=== PATIENT | male | born 1955 | race Caucasian/White ===

== ENCOUNTER 2021-06-01 02:03 | Day surgery (SDC) | payer OTHER, SELFPAY ==
[2021-05-24 10:38] VITALS: BMI 24.5
--- NOTE | 2021-05-31 13:08 | WPDANESEPPF ---
Anes - Initial Pre Proc Eval Procedure: Operation Date: 06/01/21 09:00 Proposed Procedures p Screening Colonoscopy - Claudio Kirby MD Date/Time: 05/31/21 13:08 Surgeon: Claudio Kirby MD Pre Op Diagnosis: neoplasm screening Patient Data Age: 65 Gender: M Height: 1.73 m Weight: 73 kg Allergies Allergy/AdvReac Type Severity Reaction Status Date / Time Penicillins Allergy Unknown UNKNOWN Verified 06/01/21 08:34 Home Medications Medication Instructions Recorded Confirmed Type ylfpgaqz-ene-IZ-lycopen-lutein 1 tablet PO DAILY 05/24/21 05/24/21 History [Centrum Silver Men] Patient hx anesthesia problems: none Family hx anesthesia problems: none [facility] Social History Social History Smoking status: Never smoker Alcohol intake: current Drinks per week: 21 Living arrangements: with family Spiritual care concerns: No Anes - Eval Final PreProcedure Day of Procedure 05/31/21 13:08 Patient weight: normal Heart: regular rate and rhythm Lungs: clear to auscultation and normal air movement Airway: Mallampati scale class II Neurological: alert and oriented Last oral intake: >/= 8 hours ASA classification: II Emergent: no Anesthetic plan: proceed Anesthesia type and monitoring: general GIVS and standard monitoring Informed Consent: The patient's anesthetic plan and its attendant risks and benefits were discussed with the patient/family/POA. Questions were solicited and answers provided to the satisfaction of the patient/family/POA.
[2021-06-01 08:35] VITALS: BP 133/80; PULSE 65; RESP 18; TEMP 36; O2SAT 100
[2021-06-01] MEDS: LACTATED RINGERS 1,000 ML 150 ML IV CONT (08:41)
--- NOTE | 2021-06-01 08:48 | WPDGICN ---
Assessment and Plan Assessment and plan (1) Family hx of colon cancer: Code(s): Z80.0 - Family history of malignant neoplasm of digestive organs Status: Acute Assessment and Plan: Patient's brother was diagnosed with colon cancer. For this reason screwing colonoscopy is advised now and at 5 year intervals. GI Consult Note Consult date/time: 06/01/21 08:48 HPI: José Faulkner is a 65 year old male Presents for neoplasia screening colonoscopy. Patient reports that his weight appetite bowel movements are normal. He denies abdominal pain. He has had no bleeding. Family history is significant that his brother had a is diagnosis of colon cancer. Patient presents for screening exam today. Review of Systems Review of Systems: All systems reviewed & are unremarkable except as noted in HPI and below PMFSH Social History Social History Smoking status: Never smoker Alcohol intake: current Drinks per week: 21 Living arrangements: with family Spiritual care concerns: No Meds Home Medications and Allergies Home Medications Medication Instructions Recorded Confirmed Type ovpjctcj-rne-ZC-lycopen-lutein 1 tablet PO DAILY 05/24/21 05/24/21 History [Centrum Silver Men] Allergies Allergy/AdvReac Type Severity Reaction Status Date / Time Penicillins Allergy Unknown UNKNOWN Verified 06/01/21 08:34 Vital Signs Vital Signs - 24 hr 06/01/21 08:35 Temperature 96.8 F L Pulse Rate 65 Respiratory Rate 18 Blood Pressure 133/80 Pulse Oximetry 100 Exam Narrative: Physical exam reveals patient to be alert. Vital signs stable. HEENT exam is unremarkable. Patient is anicteric. Lungs are clear to auscultation and percussion. Heart is without murmur or extra sounds. Abdominal exam bowel sounds are present soft nontender with no organomegaly. Digital external rectal exam is normal.
[2021-06-01 09:47] VITALS: BP 98/74; PULSE 67; RESP 12; O2SAT 98
[2021-06-01 09:57] VITALS: BP 105/74; PULSE 58; RESP 19; O2SAT 100
[2021-06-01 10:07] VITALS: BP 113/79; PULSE 49; RESP 19; O2SAT 100
== END 2021-06-01 10:21 | disposition home or self-care (01) ==
PROVIDERS: PCP Family Medicine; Visit Provider Internal Medicine Gastroenterology
PROC: 0DJD8ZZ Inspection of Lower Intestinal Tract, Via Natural or Artificial Opening Endoscopic (ICD-10-PCS; CPT 45378; principal; 2021-06-01 09:00)
DX: Z12.11 Encounter for screening for malignant neoplasm of colon (principal); D12.4 Benign neoplasm of descending colon; D12.5 Benign neoplasm of sigmoid colon; K57.30 Diverticulosis of large intestine without perforation or abscess without bleeding; Z80.0 Family history of malignant neoplasm of digestive organs
CPT/HCPCS: 45385; 88305; J2704; J7120

== ENCOUNTER 2021-08-01 08:58 | Emergency (ER) | payer OTHER, SELFPAY ==
[2021-08-01 09:08] VITALS: BP 125/74; PULSE 60; RESP 16; TEMP 36.6; O2SAT 100
--- NOTE | 2021-08-01 09:45 | ED.EAR ---
HPI - Ear Problem General Chief complaint: Ear Stated complaint: Ear Pain History of Present Illness HPI Narrative: This is a 65-year-old male presents to the urgent care complaining of blood from his ear states that has been going on for the past few days he said when he used a Q-tip there was bleeding he states has a little numbness sometime states he was cleaning his ears he has pressure in his face and his head Related Data Allergies Allergy/AdvReac Type Severity Reaction Status Date / Time Penicillins Allergy Unknown UNKNOWN Verified 08/01/21 09:38 Review of Systems Review of Systems: Right ear bleeding painful slightly dizzy and All systems reviewed & are unremarkable except as noted in HPI and below PMFSH Social History Social History Smoking status: Never smoker Alcohol intake: current Drinks per week: 21 Spiritual care concerns: No Comments At time as signature, I have reviewed and agree with nursing past medical, social, surgical and family history. Please see nursing chart for further information. There is no relevant family history pertinent to the presenting complaint. Exam Narrative: GENERAL:Well-appearing, well-nourished, and in no acute distress. HEAD:Normocephalic, atraumatic. EYES: PERRLA and EOMI. ENT: Nares clear, clear rhinorrhea nasal pressure. Mucous membranes moist. right ear bloody and unable to see auditory canal swollen , left ear some blood noted in the auditory canal NECK: Supple. CHEST: Clear to auscultation. No respiratory distress. HEART: Regular rate and rhythm. ABDOMEN: Soft, nontender, nondistended, normal active bowel sounds. EXTREMITIES: Normal range of motion. No edema. SKIN: Warm, dry, no rash. NEURO: No focal deficits. Alert and oriented x3. Course Vital Signs Vital signs: Vital Signs Temperature 97.8 F 08/01/21 09:08 Pulse Rate 60 08/01/21 09:08 Respiratory Rate 16 08/01/21 09:08 Blood Pressure 125/74 08/01/21 09:08 Pulse Oximetry 100 08/01/21 09:08 Temperature 97.8 F 08/01/21 09:08 Pulse Rate 60 08/01/21 09:08 Respiratory Rate 16 08/01/21 09:08 Blood Pressure 125/74 08/01/21 09:08 Pulse Oximetry 100 08/01/21 09:08 Medical Decision Making Vital Signs Vital Signs: Vital Signs Temperature 97.8 F 08/01/21 09:08 Pulse Rate 60 08/01/21 09:08 Respiratory Rate 16 08/01/21 09:08 Blood Pressure 125/74 08/01/21 09:08 Pulse Oximetry 100 08/01/21 09:08 Temperature 97.8 F 08/01/21 09:08 Pulse Rate 60 08/01/21 09:08 Respiratory Rate 16 08/01/21 09:08 Blood Pressure 125/74 08/01/21 09:08 Pulse Oximetry 100 08/01/21 09:08 Discharge Plan Discharge Clinical Impression: Otitis externa Qualifiers: Otitis externa type: unspecified type Chronicity: acute Laterality: bilateral Qualified Code(s): H60.503 - Unspecified acute noninfective otitis externa, bilateral Sinusitis Qualifiers: Sinusitis location: frontal Chronicity: subacute Qualified Code(s): J01.10 - Acute frontal sinusitis, unspecified Patient Disposition: Home, Self-Care Condition: Stable Instructions: Antibiotic Form, Swimmer's Ear (ED), Upper Respiratory Infection (ED), Rhinosinusitis (ED) Additional Instructions: Viral illness may last between 7-12days; antibiotic is NOT recommended at this time. Recommend antihistamine such as Benadryl at night time and Claritin/Zyrtec/Aubrie during the day Also, recommend symptomatic treatment includes: rest, fluids, and increase humidity of the air at home. Recommend Acetaminophen or nonsteroidal anti-inflammatory agents (NSAIDs) as directed in the bottle to reduce fever and/pain/headache. Avoid smoking/second-hand smoke. Limit visits to areas with large crowds. Please schedule a follow-up visit with your personal physician for further evaluation and treatment within 3-5days. Including recheck and discussion of your blood pressure. If your symptoms persist, change or worsen signif
== END 2021-08-01 10:13 | disposition home or self-care (01) ==
PROVIDERS: Emergency Provider Nurse Practitioner Family
DX: H60.503 Unspecified acute noninfective otitis externa, bilateral (principal); J01.10 Acute frontal sinusitis, unspecified
CPT/HCPCS: 99213; G0463

== ENCOUNTER 2022-02-28 00:33 | Day surgery (SDC) | payer MEDICARE, SELFPAY ==
--- NOTE | 2022-02-20 09:31 | PC.NURSE ---
Report to the Outpatient Waiting Room, entrance under the green pavilion located off [facility], at time __0700 on date 02/28/22 . OR Time: __0900 . - You and your visitor will be asked a series of questions to screen for COVID 19 for your protection. - Only one visitor is allowed at this time. - The patient visitor is requested to leave or wait in car when not with patient. - A mask is required within the hospital. Patients may have clear liquids (water, carbonated beverages, clear teas, apple juice) until 3 hours prior to surgery with a maximum of 20 ounces. - No food from midnight until time of surgery - Infants may have breast milk until 4 hours before surgery, infant formula 6 hours prior to surgery. - Children will be allowed to drink immediately following surgery. If applicable, please bring a bottle or sippy cup to assist with drinking. Juice, water, soda, and popsicles are readily available. For infants on formula, please bring formula the day of surgery. Pacifiers are allowed. Take the following medications with a SIP of water the morning of surgery: ___NONE Medications to discontinue per physician CENTRUM VITAMIN 3 DAYS PRE OP Date to take last dose 02/24/22 Please no make-up, nail sao tomean, hairspray, perfume, deodorant, or body powder the day of surgery. No jewelry (including any body piercings) or valuables the day of surgery, leave them at home. Please take a shower or bath the night before, or the morning of, surgery with an antibacterial soap. Wear comfortable, loose fitting clothing. Children are encouraged to wear pajamas. - Jewelry must be removed prior to entering the operating room. Rings and piercings that are not removed may be cut off. - The hospital will not accept responsibility for valuables. - Please leave all valuables, including medications, at home the day of surgery. If you are going home after surgery, a licensed driver education instructor must drive you home. - NO public transportation without another adult. - We recommend that an adult stay with you for 24 hours following discharge. - We also recommend that you do not drive, make important decision, drink alcoholic beverages, or take any drugs that were not prescribed by your health care provider for at least 24 hours after your discharge time. For Pediatric surgeries, we recommend two adults accompany the child home (only one inside the building at this time). Follow any additional instructions given to you from your surgeon. If you or anyone in your household have experienced Covid symptoms in the past week, please notify your surgeon or the nurse liaison at the phone number below for possible testing. Telephone instructions given to ___PATIENT and asked if any additional questions and then verbalized understanding. Patient advised to call surgeon office or pre surgery nurse liaison [phone] if any additional questions.
[2022-02-20 09:35] VITALS: BMI 24.3
--- NOTE | 2022-02-27 13:41 | WPDANESEPPF ---
Anes - Initial Pre Proc Eval Procedure: Operation Date: 02/28/22 09:30 Proposed Procedures p Left Partial Palmar Fasciectomy to Small Finger - Amandeep Beth MD Date/Time: 02/27/22 13:41 Surgeon: Amandeep Beth MD Pre Op Diagnosis: Dupuytren's Contracture Lt Sm Finger Patient Data Age: 66 Gender: M Height: 1.73 m Weight: 72.6 kg Allergies Allergy/AdvReac Type Severity Reaction Status Date / Time Penicillins Allergy Unknown UNKNOWN Verified 02/20/22 09:24 Home Medications Medication Instructions Recorded Confirmed Type aspirin 325 mg tablet 325 mg PO PRN PRN Pain 02/20/22 02/20/22 History multivit,Ca,min-iron 8 mg-folic 1 tablet PO DAILY 02/20/22 02/20/22 History acid 200 mcg-lycopene 600 mcg tablet (Centrum Men) Patient hx anesthesia problems: none Family hx anesthesia problems: none Results Review: All pre-operative results and documents have been reviewed as part of the pre-operative evaluation. [facility] Social History Social History Smoking status: Never smoker Alcohol intake: current Drinks per week: 14 Alcohol use details: BEER Living arrangements: with family Spiritual care concerns: No Anes - Eval Final PreProcedure Day of Procedure 02/27/22 13:41 Patient weight: normal Heart: regular rate and rhythm Lungs: clear to auscultation and normal air movement Airway: Mallampati scale class II Neurological: alert and oriented Last oral intake: >/= 8 hours ASA classification: II Emergent: no Anesthetic plan: proceed Anesthesia type and monitoring: general GIVS and LMA and standard monitoring Results Review: All pre-operative results and documents have been reviewed as part of the pre-operative evaluation. Informed Consent: The patient's anesthetic plan and its attendant risks and benefits were discussed with the patient/family/POA. Questions were solicited and answers provided to the satisfaction of the patient/family/POA.
--- NOTE | 2022-02-28 07:16 | WPDHPUPDATE1 ---
History and Physical Update Update Date/Time: 02/28/22 07:16 History and Physical has been reviewed, including an updated exam of the patient. There are NO changes in the patient's condition. Risks, benefits, and alternatives have been discussed and questions answered. Patient agrees to proceed with procedure.
[2022-02-28] MEDS: ACETAMINOPHEN 500 MG TABLET 1000 MG PO (08:00)
[2022-02-28 08:12] VITALS: BP 112/67; PULSE 58; RESP 14; TEMP 36.3; O2SAT 100
[2022-02-28] MEDS: LACTATED RINGERS 1,000 ML 30 ML IV CONT ×2 (08:15→12:03)
[2022-02-28] MEDS: KETOROLAC 15 MG/ML VIAL (*BKC) IV PUSH (08:16)
[2022-02-28] MEDS: ceFAZolin 2 GM/D5W 50 ML 2 GM/50 ML BAG IVPB (10:21)
[2022-02-28] MEDS: BACITRACIN OINTMENT 15 GM TUBE 1 APPLIC TOPICAL (10:21)
[2022-02-28] MEDS: LIDO 2%/EPINEPHRINE 1:100,000 20 ML VIAL 10 ML INFILTRATE (10:21)
[2022-02-28 12:05] VITALS: BP 106/65; PULSE 90; RESP 12; O2SAT 97
--- NOTE | 2022-02-28 12:28 | P.OP_ITS ---
Procedure Note - Detailed Date of Procedure 02/28/22 Pre-op Diagnosis Dupuytren's Contracture Lt Sm Finger Post-op Diagnosis Same Procedure Performed Partial palmar fasciectomy of the right hand and small finger Surgeon Amandeep Beth MD Associate Financial Analyst Ed Anesthesia General Description of Procedure The hand was marked on the the right in the holding area. The patient was then taken to the operating room where he was placed supine on the operating table. He was given general anesthesia and the extremity was prepped and draped in usual fashion. The site was marked for incisions and locally infiltrated with 2% lidocaine with epinephrine. The extremity was exsanguinated and the lupe rniquet inflated to 250 mmHg. The hand was placed in the lead hand restraint. The transverse incision was made at the distal palmar crease to access the pretendinous palmar cord. This was taken out proximally 1 in and distally 1/2 inch . The 2nd incision was then made as a midline palmar wound running to the distal interphalangeal joint. This was extended eventually at the metacarpal phalangeal flexion crease diagonally. The skin flaps were elevated and the significant spinal cord was identified easily and the nerve was dissected free from at locally of the entire length of the nerve was not exposed this occasion. The cord segments were removed. Additional lateral cords were identified along the ulnar side and they were removed. This allowed full extension of the metacarpophalangeal and proximal interphalangeal joints. The hand was irrigated. The wound was closed with a Z-plasty at the proximal interphalangeal joint and at the metacarpophalangeal joint. The wound was closed with running 5 0 or 4-0 nylon suture. The tourniquet was released at the time the wound was being sutured. A bulky gauze bandage was applied no additional local was placed he is discharged from the operating room stable condition as a prescription for hydrocodone 7.. Estimated Blood Loss 2 Tourniquet Time 60 Drains No Pathology None sent Complications No immediate complications Disposition Same day
[2022-02-28 12:35] VITALS: BP 111/69; PULSE 56; RESP 12
[2022-02-28 13:00] VITALS: BP 116/74; PULSE 47; RESP 16
== END 2022-02-28 13:15 | disposition home or self-care (01) ==
PROVIDERS: Visit Provider Plastic Surgery
PROC: (CPT 26045; principal; 2022-02-28 09:30)
DX: M72.0 Palmar fascial fibromatosis [Dupuytren] (principal)
CPT/HCPCS: 26123; A9270; J0690; J1885; J2250; J2704; J3010; J7120

== ENCOUNTER 2025-07-15 09:31 | Outpatient (CLI) | payer MEDICARE, SELFPAY ==
--- NOTE | ~2025-07-15 | CT_ITS ---
EXAMINATION: CT sinus wo con DATE: 07/15/2025 09:43 INDICATION: Chronic sinusitis TECHNIQUE: Computed tomography (CT) of the paranasal sinuses was performed without intravenous contrast. The dose-length product was 264.97 mGy-cm. COMPARISON: CT dated 03/09/2016 FINDINGS: There is chronic mucosal thickening of the maxillary, ethmoid, sphenoid and frontal sinuses, although improved compared with prior study. Mastoids are pneumatized. IMPRESSION: 1. Moderate pansinus disease. Reviewed, dictated and finalized at location O.
== END 2025-07-15 09:32 | disposition home or self-care (01) ==
LOC: MICIMG 09:32
PROVIDERS: PCP Otolaryngology; Visit Provider Otolaryngology
DX: J32.4 Chronic pansinusitis (principal); J34.2 Deviated nasal septum; J33.9 Nasal polyp, unspecified; Z87.898 Personal history of other specified conditions
CPT/HCPCS: 70486

== ENCOUNTER 2025-08-03 05:59 | Day surgery (SDC) | payer MEDICARE, SELFPAY ==
[2025-07-21 11:06] VITALS: BMI 24.4
--- NOTE | 2025-07-31 16:27 | P.HP_ITS ---
H&P: HPI History of Present Illness Date/Time: 07/31/25 16:27 Chief Complaint: Nasal polyp septal deviation turbinate hypertrophy chronic sinusitis Narrative: planned surgical procedure Review of Systems Review of Systems: All systems reviewed & are unremarkable except as noted in HPI and below [facility] Social History Social History Smoking status: Heavy tobacco smoker Tobacco type: smokeless tobacco Smokeless tobacco user: snuff Second hand tobacco smoke exposure: Yes Alcohol intake: current Drinks per week: 10 Alcohol use details: beer Substance use: never Substance use type: does not use Do You Feel Safe in your Home?: No Lack of Transportation: No Lack of Food: Never True Current Housing: I Have Housing Concerned About Future Housing: No Difficulty Paying Gas/Electric Bills: No Difficulty Paying for Meds: No Currently Unemployed: No Education: High School Diploma/GED Difficulty w/ Childcare or Family Care: No Living arrangements: with family Gender identity (if verbalized by the patient): Male Sexual Orientation (if Verbalized by the Patient): Straight or Heterosexual Spiritual care concerns: No Meds Home Medications and Allergies Home Medications ?Medication ?Instructions ?Recorded ?Confirmed ?Type azelastine 137 mcg (0.1 %) nasal See Rx Instructions . Route 02/24/24 07/21/25 Rx spray .COMPLEX #90 mL budesonide 0.25 mg/2 mL suspension 0.25 mg (2 mL) irri gation DAILY 06/07/25 07/21/25 Rx for nebulization #120 mL mupirocin 2 % topical ointment 1 applic topical BID #2 2 grams 07/27/25 Rx [facility]) prednisone 10 mg tablet 10 mg PO DAILY #7 tabs 07/27 Rx Allergies Allergy/AdvReac Type Severity Reaction Status Date / Time Penicillins Allergy Unknown UNKNOWN Verified 07/21/25 10:58 Exam Narrative: severe left septal deviation turbinate hypertrophy nasal polyps chronic appearing sinuses Assessment and Plan Assessment and plan (1) Chronic sinusitis: Code(s): J32.9 - Chronic sinusitis, unspecified Status: Acute Assessment and Plan: Plan, OR for endoscopic assisted septoplasty, bilateral image guided endoscopic maxillary antrostomies total ethmoidectomies frontal sinusotomies and sph enoidotomies. Nasal polypectomy. Total operative time 3:00 hours, anesthesia general. risks were discussed including central incisor numbness could be permanent dysphagia swallowing issues can be permanent septal perforation postoperative bleeding infection need further procedures failure resolve symptoms change in cosmetic appearance CSF leak brain brain damage need for transfer back and [facility]. Total blindness CSF leak change in vision, for time off school Justa risk medication are cotton use. Patient voiced understanding the aforementioned plan and agreed. (2) Nasal polyps: Code(s): J33.9 - Nasal polyp, unspecified Status: Acute (3) Nasal septal deviation: Code(s): J34.2 - Deviated nasal septum Status: Acute (4) Hypertrophy of both inferior nasal turbinates: Code(s): J34.3 - Hypertrophy of nasal turbinates Status: Acute
[2025-08-03] VITALS (10 sets, daily range): BP systolic 111–135; BP diastolic 61–87; PULSE 73–91; RESP 12–18; TEMP 36.1–36.3; O2SAT 95–100
[2025-08-03] MEDS: LACTATED RINGERS 1,000 ML 30 ML IV CONT ×3 (06:33→12:34)
[2025-08-03] MEDS: ACETAMINOPHEN 500 MG TABLET 1000 MG PO (06:33)
--- NOTE | 2025-08-03 07:27 | WPDANESEPPF ---
Anes - Initial Pre Proc Eval Procedure: Operation Date: 08/03/25 07:30 Proposed Procedures p Image Guided Endoscopic Assisted Septoplasty, Bilateral Maxillary Antrostomy, Total Ethmoidectomy, Frontal Sinusotomy, Sphenoidotomy and Nasal Polypectomy - Hakan Stanley MD Date/Time: 08/03/25 07:27 Surgeon: Hakan Stanley MD Pre Op Diagnosis: Chronic Sinusitis, Nasal Polyp Patient Data Age: 69 Gender: M Height: 1.73 m Weight: 65.85 kg Last Vital Signs Temp 97.0 F L 08/03/25 06:20 Pulse 91 08/03/25 06:20 Resp 18 08/03/25 06:20 BP 124/85 08/03/25 06:20 Pulse Ox 100 08/03/25 06:20 O2 Del Method Room Air 08/03/25 06:20 Allergies Allergy/AdvReac Type Severity Reaction Status Date / Time Penicillins Allergy Unknown UNKNOWN Verified 08/03/25 06:51 Home Medications ?Medication ?Instructions ?Recorded ?Confirmed ?Type azelastine 137 mcg (0.1 %) nasal See Rx Instructions .Route 02/24/24 08/03/25 Rx spray .COMPLEX #90 mL budesonide 0.25 mg/2 mL suspension 0.25 mg (2 mL) irrigation DAILY 06/07/25 08/03/25 Rx for nebulization #120 mL mupirocin 2 % topical ointment 1 applic topical BID #22 grams 07/27/25 08/03/25 Rx ([facility]) Patient hx anesthesia problems: none Family hx anesthesia problems: none Results Review: All pre-operative results and documents have been reviewed as part of the pre-operative evaluation. [facility] Social History Social History Smoking status: Heavy tobacco smoker Tobacco type: smokeless tobacco Smokeless tobacco user: snuff Second hand tobacco smoke exposure: Yes Alcohol intake: current Drinks per week: 10 Alcohol use details: beer Substance use: never Substance use type: does not use Do You Feel Safe in your Home?: No Lack of Transportation: No Lack of Food: Never True Current Housing: I Have Housing Concerned About Future Housing: No Difficulty Paying Gas/Electric Bills: No Difficulty Paying for Meds: No Currently Unemployed: No Education: High School Diploma/GED Difficulty w/ Childcare or Family Care: No Living arrangements: with family Gender identity (if verbalized by the patient): Male Sexual Orientation (if Verbalized by the Patient): Straight or Heterosexual Spiritual care concerns: No Anes - Eval Final PreProcedure Day of Procedure 08/03/25 07:27 Heart: regular rate and rhythm Lungs: clear to auscultation Airway: Mallampati scale class III and other (front tooth bridge) Neurological: alert and oriented Last oral intake: >/= 8 hours ASA classification: II Anesthetic plan: proceed Anesthesia type and monitoring: general Results Review: All pre-operative results and documents have been reviewed as part of the pre-operative evaluation. Informed Consent: The patient's anesthetic plan and its attendant risks and benefits were discussed with the patient/family/POA. Questions were solicited and answers provided to the satisfaction of the patient/family/POA.
--- NOTE | 2025-08-03 07:33 | WPDHPUPDATE1 ---
History and Physical Update Update Date/Time: 08/03/25 07:33 History and Physical has been reviewed, including an updated exam of the patient. There are NO changes in the patient's condition. Risks, benefits, and alternatives have been discussed and questions answered. Patient agrees to proceed with procedure. Possible middle turbinectomies
[2025-08-03] MEDS: ceFAZolin 2 GM in SODIUM CHLORIDE 0.9% IV 50 ML 100 ML IVPB (07:42)
[2025-08-03] MEDS: LIDO 1%/EPINEPHRINE 1:100,000 20 ML VIAL INFILTRATE (08:23)
[2025-08-03] MEDS: OXYMETAZOLINE HCL 0.05% NAS 15 ML BTL (*BKC) 1 SPRAY (08:23)
--- NOTE | 2025-08-03 12:06 | SUR.OPER ---
propell sinus implant times 2 [id number] exp- -----breeze nasal splint [id number] - [id number] nasal sinus packing and stent [id number] 2025-12-26
--- NOTE | 2025-08-03 16:28 | W.PM.PROC2 ---
Procedure Note - Detailed Date of Procedure 08/03/25 Pre-op Diagnosis Chronic Sinusitis, Nasal Polyp , septal deviation Post-op Diagnosis Same Procedure Performed 1. Endoscopic assisted septoplasty 2. Bilateral inferior turbinate outfracture 3. Right middle turbinectomy 4. Bilateral image guided endoscopic maxillary antrostomies 5. Bilateral image guided endoscopic total ethmoidectomies 6. Bilateral image guided endoscopic sphenoidotomies 7. Left endoscopic image guided frontal sinusotomy With propel stent placement 8. Right image guided endoscopic frontal sinusotomy with drill out draft 2b with propel stent placement Surgeon Hakan Stanley MD Anesthesia General Indications see above Findings severely deviated leftward caudal septum necessitating reconstruction. Polypoid edema and polyps in all the aforementioned sinuses. Polyps over the right middle turbinate which was completely obstructive of the frontal sinus. obstructive turbinates had outfracture them for access. Description of Procedure Patient identified consent verified the preoperative holding area. Patient brought to the operating. Time-out performed. General anesthesia induced endotracheal tube secured. Patient prepped draped position procedure confirmed 2nd time-out performed. Image guidance initiated confirmed. Total 15 cc 1% lidocaine 1 100,000 parts and right epinephrine injected the bilateral nasal septum and right stalk of the middle turbinate. Right middle turbinectomy performed straight through cut and suction Bovie for the stump setting of 20. Turbinates a if he would need a later for reconstruction of any skull-based defect. Inferior turbinates outfractured for access. Hemitransection incision made for the nasal septum deviated nasal septum removed with scissors 15 blade Lali forceps. Septum sutured back in place in the columella straightening his nose actually a much better appearance after this. Hemitransection incision closed with 4 rotate 5 0 fast gut sutures. Much more patent nasal airway. Much better appearance of the nose cosmetically. Maxillary antrostomies performed with double ball tip probe straight through cut backbiter and image guidance. Total ethmoidectomy performed with Kerrison image guidance image guided microdebrider. Polypoid edema filling all the aforementioned sinuses. Sphenoidotomy performed with Kerrison sphenoid punch and image guidance. No damage to orbit skull base posterior nasal arteries. Left frontal sinusotomy performed with image guidance Cobra 70 degree drill 70 degree image guided suctions. Polypoid edema filling. The drill was removed using small cap of the agger. Right-sided frontal sinusotomy performed with frontal sinus instruments and image guidance of course but largely with the drill had to drill out a new pathway. There were copious amounts of secretions purulence thick intubated mucus. Patient tolerated the procedure well total blood loss about 50 cc. I performed all dictated portions of the procedure. There were no complications. Care the patient given back to Anesthesiology. Propel stents were placed the bilateral frontal outflows. Nova pack placed along the operative site to catch any bleeding. The wounds were copiously irrigated out with normal in a sterile normal saline. Dyer splints were placed the left lateral to the middle turbinate. Sutured anteriorly using a 3-0 mattress nylon suture. Patient tolerated the procedure well no complications. Patient taken to PACU. Estimated Blood Loss 50 Drains No Packing Yes (Maria Guadalupe) Pathology None sent Complications No immediate complications Condition Stable Disposition PACU [facility] Billing Surgery - Charge Forward: Surgery Billing
== END 2025-08-03 14:50 | disposition home or self-care (01) ==
PROVIDERS: Visit Provider Otolaryngology
PROC: (CPT 31256; principal; 2025-08-03 07:30)
DX: J32.9 Chronic sinusitis, unspecified (principal); J33.8 Other polyp of sinus; J34.2 Deviated nasal septum; J34.3 Hypertrophy of nasal turbinates
CPT/HCPCS: 31256; 31257; 31276; 30930; 30520; 61782